=== PATIENT | male | born 1995 | race Caucasian/White ===

== ENCOUNTER 2020-07-17 11:53 | Emergency (ER) | payer BC ==
[2020-07-17] MEDS ORDERED: Sodium Chloride 0.9% 10 ML Syringe FLUSH PRN (12:47)
--- NOTE | 2020-07-17 12:47 | EDM.PDOC ---
ED HPI GENERAL MEDICAL PROBLEM - General Chief Complaint: Fever Stated Complaint: COVID Time Seen by Provider: 07/17/20 12:05 Source of Information: Reports: Patient History Limitations: Reports: No Limitations - History of Present Illness INITIAL COMMENTS - FREE TEXT/NARRATIVE: Pt. presents to ER with complaints of fever. Pt. was diagnosed with covid 19 on 07/10. Pt. states that he has been running fevers intermittently since around 07/05/20. Pt. states that the symptoms have remained constant but are not really getting worse. Pt. denies any chest pain or shortness of breath. Only a very light cough. His significant other was also diagnosed with covid 2 days before and his been experiencing significant cough/chest congestion. He states that he is much less fatigued and weak than she is as well. Pt. denies any chest pain. No N/V/D. Denies any rashes. Onset Date: 07/05/20 Location: Reports: Generalized - Related Data Allergies Allergy/AdvReac Type Severity Reaction Status Date / Time No Known Allergies Allergy Verified 07/17/20 12:16 Home Meds: Home Meds . [No Known Home Meds] 07/17/20 [History] Past Medical History - Past Health History Medical/Surgical History: Denies Medical/Surgical History - Infectious Disease History Infectious Disease History: Reports: Novel Coronavirus Social & Family History - Tobacco Use Tobacco Use Status *Q: Unknown Ever Used Tobacco ED ROS GENERAL - Review of Systems Review Of Systems: See Below Constitutional: Reports: Fever, Chills, Malaise, Fatigue, Diaphoresis HEENT: Reports: No Symptoms Respiratory: Reports: Cough Cardiovascular: Reports: No Symptoms Endocrine: Reports: No Symptoms GI/Abdominal: Reports: No Symptoms : Reports: No Symptoms Musculoskeletal: Reports: No Symptoms Skin: Reports: No Symptoms Neurological: Reports: No Symptoms Psychiatric: Reports: No Symptoms Hematologic/Lymphatic: Reports: No Symptoms Immunologic: Reports: No Symptoms ED EXAM, GENERAL - Physical Exam Exam: See Below Exam Limited By: No Limitations General Appearance: Alert, WD/WN, No Apparent Distress Eye Exam: Bilateral Eye: EOMI, PERRL Head: Atraumatic, Normocephalic, Facial Tenderness Neck: Normal Inspection, Supple, Non-Tender Respiratory/Chest: No Respiratory Distress, No Accessory Muscle Use, Chest Non- Tender, Crackles Cardiovascular: Normal Peripheral Pulses, Regular Rate, Rhythm, No Edema, No JVD, No Murmur Peripheral Pulses: 4+: Radial (L) (Male) Exam: Deferred Rectal (Males) Exam: Deferred Extremities: Normal Inspection, Normal Range of Motion Neurological: Alert, Oriented, CN II-XII Intact, Normal Cognition, Normal Gait, No Motor/Sensory Deficits Psychiatric: Normal Affect, Normal Mood Skin Exam: Warm, Intact, No Rash, Diaphoretic, Pallor Lymphatic: No Adenopathy Course - Vital Signs Last Recorded V/S: Last Vital Signs Temp 36.8 C 07/17/20 11:53 Pulse 92 07/17/20 11:53 Resp 18 07/17/20 11:53 BP 111/87 07/17/20 11:53 Pulse Ox 95 07/17/20 11:53 - Orders/Labs/Meds Orders: Active Orders 24 hr Category Date Time Status Vital Signs [RC] Q15M Care 07/17/20 14:06 Active CULTURE BLOOD [BC] Stat Lab 07/17/20 13:06 Received CULTURE BLOOD [BC] Stat Lab 07/17/20 13:08 Received EPINEPHrine [Adrenalin] Med 07/17/20 14:06 Active 0.3 mg IM ONETIME PRN Famotidine [Pepcid] Med 07/17/20 14:06 Active 20 mg IVPUSH ONETIME PRN Sodium Chloride 0.9% [Saline Flush] Med 07/17/20 12:47 Active 10 ml FLUSH ASDIRECTED PRN Sodium Chloride 0.9% [Saline Flush] Med 07/17/20 14:15 Active 30 ml FLUSH ASDIRECTED diphenhydrAMINE [Benadryl] Med 07/17/20 14:06 Active 50 mg IVPUSH ONETIME PRN methylPREDNISolone Sod Succ [Solu-MEDROL] Med 07/17/20 14:06 Active 125 mg IVPUSH ONETIME PRN Blood Culture x2 Reflex Set [OM.PC] Stat Oth 07/17/20 12:48 Ordered Peripheral IV Insertion Adult [OM.PC] Routine Oth 07/17/20 12:48 Ordered Medication Orders Diphenhydramine HCl (Diphenhydramine 50 Mg/Ml Sdv) 50 mg IVPUSH ONETIME PRN PRN Reason: hypersensitivity reaction Epinephrine HCl (Epinephrine 1 Mg/Ml Sdv) 0.3 mg IM ONETIME PRN PRN Reason: hypersensitivity reaction Famotidine (Famotidine 20 Mg/2 Ml Sdv) 20 mg IVPUSH ONETIME PRN PRN Reason: hypersensitivity reaction Methylprednisolone Sodium Succinate (Methylprednisolone Sodium Succinate 125 Mg/2 Ml Sdv) 125 mg IVPUSH ONETIME PRN PRN Reason: hypersensitivity reaction Sodium Chloride (Sodium Chloride 0.9% 10 Ml Syringe) 10 ml FLUSH ASDIRECTED PRN PRN Reason: Keep Vein Open Sodium Chloride (Sodium Chloride 0.9% 10 Ml Syringe) 30 ml FLUSH ASDIRECTED JV Labs: Laboratory Tests 07/17/20 07/17/20 07/17/20 Range/Units 13:06 13:06 13:06 WBC 4.3 (4.0-10.0) x10^3/uL RBC 5.80 (4.5-6.0) x10^6/uL Hgb 15.3 (14.0-18.0) g/dL Hct 44.4 (40.0-52.0) % MCV 76.6 L (78.0-93.0) fL MCH 26.4 (26.0-32.0) pg MCHC 34.5 (32.0-36.0) g/dL RDW Coeff of Tiburcio 14.7 (10.0-15.0) % Plt Count 130 (130-400) x10^3/uL Neut % (Auto) 76.8 (50.0-80.0) % Lymph % (Auto) 20.0 L (25.0-50.0) % Brewster % (Auto) 3.0 (2.0-11.0) % Eos % (Auto) 0.0 (0.0-4.0) % Baso % (Auto) 0.2 (0.2-1.2) % PT 10.6 (9.9-12.5) SEC INR 1.0 L (2.0-3.5) APTT (25.6-32.8) SEC Sodium 140 (136-145) mmol/L Potassium 3.7 (3.5-5.1) mmol/L Chloride 102 (98-107) mmol/L Carbon Dioxide 26 (21-32) mmol/L Anion Gap 15.7 H (5-15) mmol/L BUN 13 (7-18) mg/dL Creatinine 1.1 (0.70-1.30) mg/dL Est Cr Clr Drug Dosing TNP Estimated GFR (MDRD) > 60 Glucose 104 H (70-99) mg/dL Lactic Acid (0.4-2.0) mmol/L Calcium 8.5 (8.5-10.1) mg/dL Corrected Calcium 9.14 (8.5-10.1) mg/dL Magnesium 1.7 L (1.8-2.4) mg/dL Total Bilirubin 0.4 (0.2-1.0) mg/dL AST 108 H (15-37) U/L ALT 113 H (16-63) U/L Alkaline Phosphatase 70 (46-116) U/L Lactate Dehydrogenase 633 H (85-227) U/L C-Reactive Protein 5.6 H (<=0.9) mg/dL Total Protein 8.1 (6.4-8.2) g/dL Albumin 3.2 L (3.4-5.0) g/dL Globulin 4.9 Albumin/Globulin Ratio 0.65 07/17/20 07/17/20 Range/Units 13:06 13:06 WBC (4.0-10.0) x10^3/uL RBC (4.5-6.0) x10^6/uL Hgb (14.0-18.0) g/dL Hct (40.0-52.0) % MCV (78.0-93.0) fL MCH (26.0-32.0) pg MCHC (32.0-36.0) g/dL RDW Coeff of Tiburcio (10.0-15.0) % Plt Count (130-400) x10^3/uL Neut % (Auto) (50.0-80.0) % Lymph % (Auto) (25.0-50.0) % Brewster % (Auto) (2.0-11.0) % Eos % (Auto) (0.0-4.0) % Baso % (Auto) (0.2-1.2) % PT (9.9-12.5) SEC INR (2.0-3.5) APTT 28.5 (25.6-32.8) SEC Sodium (136-145) mmol/L Potassium (3.5-5.1) mmol/L Chloride (98-107) mmol/L Carbon Dioxide (21-32) mmol/L Anion Gap (5-15) mmol/L BUN (7-18) mg/dL Creatinine (0.70-1.30) mg/dL Est Cr Clr Drug Dosing Estimated GFR (MDRD) Glucose (70-99) mg/dL Lactic Acid 1.7 (0.4-2.0) mmol/L Calcium (8.5-10.1) mg/dL Corrected Calcium (8.5-10.1) mg/dL Magnesium (1.8-2.4) mg/dL Total Bilirubin (0.2-1.0) mg/dL AST (15-37) U/L ALT (16-63) U/L Alkaline Phosphatase (46-116) U/L Lactate Dehydrogenase (85-227) U/L C-Reactive Protein (<=0.9) mg/dL Total Protein (6.4-8.2) g/dL Albumin (3.4-5.0) g/dL Globulin Albumin/Globulin Ratio Meds: Medications Generic Name Dose Route Start Last Admin Trade Name Freq PRN Reason Stop Dose Admin Diphenhydramine HCl 50 mg 07/17/20 14:06 Diphenhydramine 50 Mg/Ml Sdv IVPUSH ONETIME PRN hypersensitivity reaction Epinephrine HCl 0.3 mg 07/17/20 14:06 Epinephrine 1 Mg/Ml Sdv IM ONETIME PRN hypersensitivity reaction Famotidine 20 mg 07/17/20 14:06 Famotidine 20 Mg/2 Ml Sdv IVPUSH ONETIME PRN hypersensitivity reaction Methylprednisolone Sodium Succinate 125 mg 07/17/20 14:06 Methylprednisolone Sodium Succinate 125 Mg/2 Ml Sdv IVPUSH ONETIME PRN hypersensitivity reaction Sodium Chloride 10 ml 07/17/20 12:47 Sodium Chloride 0.9% 10 Ml Syringe FLUSH ASDIRECTED PRN Keep Vein Open Sodium Chloride 30 ml 07/17/20 14:15 Sodium Chloride 0.9% 10 Ml Syringe FLUSH ASDIRECTED JV Discontinued Medications Generic Name Dose Route Start Last Admin Trade Name Freq PRN Reason Stop Dose Admin Calcium Carbonate/Glycine 1,500 mg 07/17/20 15:47 07/17/20 16:15 Calcium Carbonate 750 Mg Tab.Chew PO 07/17/20 15:48 1,500 mg ONETIME ONE Administration Calcium Carbonate/Glycine Confirm 07/17/20 16:25 Calcium Carbonate 750 Mg Tab.Chew Administered 07/17/20 16:26 Dose 750 mg .ROUTE .STK-MED ONE Bamlanivimab 700 mg/ 310 mls @ 310 mls/hr 07/17/20 14:06 07/17/20 14:25 Etesevimab 1,400 mg/ Sodium IV 07/17/20 15:05 310 mls/hr Chloride ONETIME ONE Administration - Radiology Interpretation Free Text/Narrative:: chest x-ray reveals patchy areas of parenchymal opacification throughout both lungs. No pleural effusion or pneumothorax. Findings consistent with covid pneumonia. Departure - Departure Time of Disposition: 16:36 Disposition: Home, Self-Care 01 Clinical Impression: Pneumonia due to COVID-19 virus - Discharge Information Instructions: COVID-19 Frequently Asked Questions Referrals: PCP,None [Primary Care Provider] - Forms: ED Department Discharge Additional Instructions: Home to rest. Quarantine as directed by the health department. Drink plenty of fluids. Tylenol as needed for fever. Return to ER if you have trouble breathing, chest pain, increased weakness, or decreased level of consciousness. Recheck in clinic 2 weeks post quarantine. Sepsis Event Note (ED) - Evaluation Sepsis Screening Result: No Definite Risk - Focused Exam Vital Signs: Vital Signs Temp Pulse Resp BP Pulse Ox 07/17/20 11:53 36.8 C 92 18 111/87 95 - My Orders Last 24 Hours: My Active Orders 07/17/20 12:47 Sodium Chloride 0.9% [Saline Flush] 10 ml FLUSH ASDIRECTED PRN 07/17/20 12:48 Blood Culture x2 Reflex Set [OM.PC] Stat Peripheral IV Insertion Adult [OM.PC] Routine 07/17/20 13:06 CULTURE BLOOD [BC] Stat 07/17/20 13:08 CULTURE BLOOD [BC] Stat 07/17/20 14:06 Vital Signs [RC] Q15M EPINEPHrine [Adrenalin] 0.3 mg IM ONETIME PRN Famotidine [Pepcid] 20 mg IVPUSH ONETIME PRN diphenhydrAMINE [Benadryl] 50 mg IVPUSH ONETIME PRN methylPREDNISolone Sod Succ [Solu-MEDROL] 125 mg IVPUSH ONETIME PRN 07/17/20 14:15 Sodium Chloride 0.9% [Saline Flush] 30 ml FLUSH ASDIRECTED - Assessment/Plan Last 24 Hours: My Active Orders 07/17/20 12:47 Sodium Chloride 0.9% [Saline Flush] 10 ml FLUSH ASDIRECTED PRN 07/17/20 12:48 Blood Culture x2 Reflex Set [OM.PC] Stat Peripheral IV Insertion Adult [OM.PC] Routine 07/17/20 13:06 CULTURE BLOOD [BC] Stat 07/17/20 13:08 CULTURE BLOOD [BC] Stat 07/17/20 14:06 Vital Signs [RC] Q15M EPINEPHrine [Adrenalin] 0.3 mg IM ONETIME PRN Famotidine [Pepcid] 20 mg IVPUSH ONETIME PRN diphenhydrAMINE [Benadryl] 50 mg IVPUSH ONETIME PRN methylPREDNISolone Sod Succ [Solu-MEDROL] 125 mg IVPUSH ONETIME PRN 07/17/20 14:15 Sodium Chloride 0.9% [Saline Flush] 30 ml FLUSH ASDIRECTED Plan: Home to rest. Quarantine as directed by the health department. Drink plenty of fluids. Tylenol as needed for fever. Return to ER if you have trouble breathing, chest pain, increased weakness, or decreased level of consciousness. Recheck in clinic 2 weeks post quarantine.
--- NOTE | 2020-07-17 13:21 | CR ---
[id number] RAD/RAD Chest PA or AP 1V EXAM: RAD Chest PA or AP 1V INDICATION: POSITIVE COVID 19, FEVER. COMPARISON: None. Discussion/impression: Cardiomediastinal silhouette is normal in size and contour. Patchy areas of parenchymal opacification throughout both lungs. Findings are consistent with COVID pneumonia. No pleural effusion or pneumothorax. Solomon Hicks MD 07/17/20 3034 Thank you for allowing us to participate in the care of your patient.
[2020-07-17 13:38] LABS: CHLORIDE,CL 102 mmol/L (98-107); SODIUM,NA 140 mmol/L (136-145)
[2020-07-17 13:41] LABS: ANION GAP 15.7 mmol/L (5-15)
[2020-07-17] MEDS ORDERED: Famotidine 20 MG/2 ML SDV IVPUSH PRN (14:06)
[2020-07-17] MEDS ORDERED: methylPREDNISolone Sodium Succinate 125 MG/2 ML SDV IVPUSH PRN (14:06)
[2020-07-17] MEDS ORDERED: diphenhydrAMINE 50 MG/ML SDV IVPUSH PRN (14:06)
[2020-07-17] MEDS ORDERED: EPINEPHrine 1 MG/ML SDV IM PRN (14:06)
[2020-07-17] MEDS ORDERED: Sodium Chloride 0.9% 10 ML Syringe FLUSH SCH (14:15)
[2020-07-17] MEDS ORDERED: Calcium Carbonate 750 MG Tab.Chew PO ONE (15:47)
[2020-07-17] MEDS ORDERED: Calcium Carbonate 750 MG Tab.Chew ONE (16:25)
== END 2020-07-17 16:32 | disposition home or self-care (01) ==
LOC: VM.ED 11:53
DX: U07.1 COVID-19 (principal); J12.82 Pneumonia due to coronavirus disease 2019
CPT/HCPCS: 36415; 71045; 80053; 83605; 83615; 83735; 85025; 85610; 85730; 86140; 87040; 99283-25; 99284; A9270-GY; J7050; M0245; Q0239; Q0245